=== PATIENT | male | born 1955 | race American Indian/Alaskan Native ===

== ENCOUNTER 2023-01-29 09:46 | Day surgery (SDC) | payer OTHER ==
[~2023-01-29] VITALS: Ht 177.8 cm; Wt 86.0 kg
[~2023-01-29 09:46] MED LIST: ACET325 PO; EUTHYROX125 MCG PO; ONDA4 PO; SENNA LAXATIVE8.6 MG PO
[2023-01-29] MEDS ORDERED: CYCL10 (10:05)
[2023-01-29] MEDS ORDERED: DEPO-TESTO200 MG/1 M (10:06)
[2023-01-29] MEDS ORDERED: VALA500 (10:07)
[2023-01-29] MEDS ORDERED: [UNRECOGNIZED DRUG - OTHER] (10:08)
[2023-01-29] MEDS ORDERED: ERGO400 (10:09)
[2023-01-29 12:36] VITALS: BP 121/80
== END 2023-01-29 12:44 | disposition home or self-care (01) ==
LOC: ORSCSDS 09:46
PROVIDERS: Surgery
PROC: 0DJD8ZZ Inspection of Lower Intestinal Tract, Via Natural or Artificial Opening Endoscopic (ICD-10-PCS; principal; 2023-01-29 11:00)
PROC: 0DB78ZX Excision of Stomach, Pylorus, Via Natural or Artificial Opening Endoscopic, Diagnostic (ICD-10-PCS; principal; 2023-01-29 11:00)
DX: R19.4 Change in bowel habit (principal); K29.70 Gastritis, unspecified, without bleeding; R10.84 Generalized abdominal pain; R11.0 Nausea; K59.00 Constipation, unspecified; Z79.899 Other long term (current) drug therapy
CPT/HCPCS: 88305; 88342; J2704; J7120

== ENCOUNTER 2024-04-04 13:46 | Emergency (ER) | payer OTHER ==
[~2024-04-04] VITALS: Ht 177.8 cm; Wt 86.2 kg
[~2024-04-04 13:46] MED LIST changes: +CYCL10; +DEPO-TESTO200 MG/1 M; +ERGO400; +VALA500; +[UNRECOGNIZED DRUG - OTHER]
[2024-04-04 13:55] VITALS: BP 160/112
[2024-04-04 14:21] LABS: BASOPHILS ABSOLUTE AUTO 0.02 K/mm3 (0.00-0.23); BASOPHILS PERCENT AUTO 1 % (0-2); EOSINOPHILS ABSOLUTE AUTO 0.06 K/mm3 (0.00-0.68); EOSINOPHILS PERCENT AUTO 2 % (0-6); Hematocrit 42.9 % (37.0-53.0); IMMATURE GRAN ABSOLUTE AUTO 0.01 K/mm3 (0.00-0.10); IMMATURE GRAN PERCENT AUTO 0 % (0-1); LYMPHOCYTES ABSOLUTE AUTO 1.28 K/mm3 (0.84-5.20); LYMPHOCYTES PERCENT AUTO 31 % (21-46); MONOCYTES ABSOLUTE AUTO 0.65 K/mm3 (0.16-1.47); MONOCYTES PERCENT AUTO 16 % (4-13); Mean Corpuscular HGB 32.8 pg (26.0-34.0); Mean Corpuscular Volume 94 fL (80-100); Mean Platelet Volume 10.9 fL (9.1-12.4); NEUTROPHILS PERCENT AUTO 51 % (41-73); Platelet Count 218 K/mm3 (150-400); RDW Standard Deviation 47.8 fL (35.1-46.3); Red Blood Cell Count 4.58 M/mm3 (4.30-5.90); White Blood Cell Count 4.12 K/mm3 (4.00-11.30)
[2024-04-04 14:48] LABS: Albumin, Blood 4.3 g/dL (3.4-5.0); Albumin/Globulin Ratio 1.1 (0.8-1.8); Bilirubin, Total 0.8 mg/dL (0.1-1.0); Bun/Creatinine Ratio 13.2 (12.0-20.0); Calcium, Blood 9.6 mg/dL (8.5-10.1); Creatinine, Blood 1.06 mg/dL (0.60-1.20); Globulin, Blood 3.9 g/dL (2.2-4.0); Potassium, Blood 4.4 mmol/L (3.5-5.5); Total Protein, Blood 8.2 g/dL (6.4-8.2)
== END 2024-04-04 16:54 | disposition home or self-care (01) ==
LOC: ER 13:46
PROVIDERS: Emergency Medicine
DX: K59.00 Constipation, unspecified (principal); K43.9 Ventral hernia without obstruction or gangrene; K57.30 Diverticulosis of large intestine without perforation or abscess without bleeding; E03.9 Hypothyroidism, unspecified; Z88.5 Allergy status to narcotic agent; Z88.0 Allergy status to penicillin; Z79.890 Hormone replacement therapy; Z79.899 Other long term (current) drug therapy; Z90.49 Acquired absence of other specified parts of digestive tract
CPT/HCPCS: 74177; 80053; 85025; 99285-25; Q9967

== ENCOUNTER 2024-05-06 09:10 | Inpatient (IN) | payer OTHER ==
[~2024-05-06] VITALS: Ht 175.3 cm; Wt 84.3 kg
[2024-05-06] VITALS (35 sets, daily range): BP systolic 111–189; BP diastolic 74–114
[~2024-05-06 09:10] MED LIST changes: +DOXY100 PO; +Flonase 0.05% N16 GM; +HYDROCODONE-AC1 EA19 PO; +LORA10ER PO; +MELO7.5 PO; +Metrocream45 GM TOP; +OMEP20ER PO; +SILD25T PO; +THERA-D2000 UNIT; +TUMERIC; +XYZAL5 MG PO
[2024-05-06] MEDS ORDERED: CeFAZolin Sodium 2,000 MG in NS 100 ML IV SCH (09:25)
[2024-05-06] MEDS ORDERED: Acetaminophen 500 MG Tab PO SCH (09:25)
[2024-05-06] MEDS ORDERED: Lactated Ringer's 1,000 ML IV SCH (09:25)
[2024-05-06] MEDS ORDERED: Bupivacaine 0.5% HCl 5 MG/ML 30MLVIAL ONE (09:31)
--- NOTE | 2024-05-06 09:57 | NUR ---
Ambulatory in Day Surgery. History, Chart, Medications and Allergies reviewed before start of procedure. Lungs clear T/O to Auscultation. Patient confirms NPO status and agrees with scheduled surgery. Pre-Op teaching done. Pt verbalizes understanding. PT BELONGINGS PLACED UNDERNEATH GURNEY FOR SAFEKEEPING.
[2024-05-06] MEDS ORDERED: Midazolam HCl 1MG / ML 2ML Vial ONE ×2 (10:05→14:48)
[2024-05-06] MEDS ORDERED: FentaNYL Citrate 50 MCG/ML 2 ML Injection ONE ×6 (10:06→14:49)
[2024-05-06] MEDS ORDERED: propofoL 20 ML IV ONE (10:10)
[2024-05-06] MEDS ORDERED: SuccINYLCHOLINE Chloride 100 MG/5 ML 5MLSYR ONE (10:11)
[2024-05-06] MEDS ORDERED: Dexamethasone Sod Phos 10 MG/ML 1ML VIAL ONE (10:23)
[2024-05-06] MEDS ORDERED: Rocuronium Bromide 10 MG/ML 5ML Injection IV ONE ×2 (10:23→10:24)
[2024-05-06] MEDS ORDERED: Ondansetron HCl 2 MG / ML 2ML Vial ONE (10:23)
[2024-05-06] MEDS ORDERED: CeFAZolin Sodium 1000 mg Vial ONE (12:34)
[2024-05-06] MEDS ORDERED: Ketorolac Tromethamine 30mg Vial ONE (13:19)
[2024-05-06] MEDS ORDERED: Sugammadex Sodium 200 MG/2ML SDV (100 MG/ML) ONE (13:19)
[2024-05-06] MEDS ORDERED: HYDROmorphone HCl/Pf 1MG SYR ONE ×4 (14:03→15:29)
[2024-05-06] MEDS ORDERED: HYDROcodone 7.5-APAP 325 TAB PO PRN (14:05)
[2024-05-06] MEDS ORDERED: FLU VACC TS2024-25(6MOS UP)/PF 45 MCG/0.5 ML SYRINGE IM PRN (14:05)
[2024-05-06] MEDS ORDERED: Ondansetron HCl 2 MG / ML 2ML Vial IV PRN (14:05)
[2024-05-06] MEDS ORDERED: FentaNYL Citrate 50 MCG/ML 2 ML Injection IV PRN (14:10)
[2024-05-06] MEDS ORDERED: Ketorolac Tromethamine 15mg Vial IV PRN (14:15)
[2024-05-06] MEDS ORDERED: Labetalol HCL 5 MG/ML 4ML Injection (Single Dose) ONE (14:34)
[2024-05-06] MEDS ORDERED: Lactated Ringer's 1,000 ML IV ONE (14:50)
--- NOTE | 2024-05-06 17:58 | NUR ---
PATIENT IS ALERT AND ORIENTED AND COOPERAIVE WITH CARE. PAIN MANAGEMENT IS OUR GOAL, MANAGED PER EMAR. THE PATIENT'S FAMILY WAS AT THE BEDSIDE FOLLOWING SURGERY. POD 0 HERNIA REPAIR. THE PATIENT STATES HIS PAIN IS CHRONIC AND WORSE TODAY FOLLOWING SURGERY. HE IS TRYING TO SLEEP NOW THAT HIS FAMILY HAS GONE HOME. WILL CONTINUE TO MONITOR.
[2024-05-06] MEDS ORDERED: Cyclobenzaprine HCl 10 MG Tab PO PRN (18:30)
[2024-05-06] MEDS ORDERED: LORazepam 1 MG Tab PO ONE (18:30)
[2024-05-06] MEDS ORDERED: Docusate Sodium 100 MG Cap PO SCH (21:00)
[2024-05-07 04:09] VITALS: BP 143/93
--- NOTE | 2024-05-07 04:23 | NUR ---
SHIFT SUMMARY POD 1 LAP HERNIA REPAIR WITH MESH PT RESTLESS T/O NIGHT. PAIN HAS BEEN ABLE TO BE MANAGED PER THE EMAR. TOLERAING SMALL AMOUNTS OF CLEAR LIQUIDS. DENIES N/V. PT WAS ABLE TO VOID. PT REPORTS BURPING BUT NOT PASSING ANY GAS.PT HAS NOT BEEN OOB YET. X4 LAP SITES CLOSED WITH WG, ALL C/D/I. VSS. NO OTHER CONCERNS AT THIS TIME, CALL LIGHT WITHIN REACH
[2024-05-07 07:09] VITALS: BP 144/87
[2024-05-07] MEDS ORDERED: Norco 7.5-3251 EACH PO (07:57)
--- NOTE | 2024-05-07 08:51 | NUR ---
PT GOT UP TO CHAIR WITH SBA. PT SAT THERE TO EAT BREAKFAST, BUT PAIN INCREASED TO 6/10. PT ASSISTED BACK TO BED AND PAIN INCREASED SIGNIFICANTLY. MEDICATED WITH FENTANYL 50MCG IVP. SIDE RAILS UP AND CALL LIGHT IN REACH.
[2024-05-07] MEDS ORDERED: Enoxaparin 40 MG/0.4 ML SYR SC SCH (09:00)
--- NOTE | 2024-05-07 13:38 | NUR ---
DISCHARGE SUMMARY PT CLEARED TO D/C HOME. NILAM PO INTAKE WELL. ADEQUATE PAIN CONTROLLED WITH PO MEDICATION. D/C INSTRUCTIONS GONE OVER WITH PT AND HE VERBALIZES UNDERSTANDING. LAP SITES X4 WNL. PT TO F/U WITH SURGEON IN 2 WEEKS AND CALL WITH ANY QUESTIONS OR GO TO ED IF CONCERNED. PT ESCORTED TO LOBBY VIA WC. TO GIVE RIDE HOME.
== END 2024-05-07 13:38 | disposition home or self-care (01) | DRG 355 ==
LOC: MEDS 09:10 → PRE IP 10:45 → SURS 15:53
PROVIDERS: ADMIT Surgery
PROC: 8E0W4CZ Robotic Assisted Procedure of Trunk Region, Percutaneous Endoscopic Approach (ICD-10-PCS; 2024-05-06)
PROC: 0WUF4JZ Supplement Abdominal Wall with Synthetic Substitute, Percutaneous Endoscopic Approach (ICD-10-PCS; principal; 2024-05-06 10:45)
DX: K43.2 Incisional hernia without obstruction or gangrene (principal); K21.9 Gastro-esophageal reflux disease without esophagitis; M54.16 Radiculopathy, lumbar region; E89.0 Postprocedural hypothyroidism; F10.90 Alcohol use, unspecified, uncomplicated; F12.90 Cannabis use, unspecified, uncomplicated; K66.0 Peritoneal adhesions (postprocedural) (postinfection); Z98.1 Arthrodesis status; Z90.49 Acquired absence of other specified parts of digestive tract; Z98.42 Cataract extraction status, left eye; Z87.19 Personal history of other diseases of the digestive system; Z98.41 Cataract extraction status, right eye; Z98.890 Other specified postprocedural states; Z90.89 Acquired absence of other organs; Z79.899 Other long term (current) drug therapy; Z79.890 Hormone replacement therapy; Z91.040 Latex allergy status; Z88.0 Allergy status to penicillin; Z88.5 Allergy status to narcotic agent
CPT/HCPCS: 94762; A9270; C1781; J0330; J0690; J1100; J1171; J1650; J1885; J2250; J2405; J2704; J3010; J7120

== ENCOUNTER → 2024-08-26 | Outpatient (CLI) | payer OTHER ==
[~2024-08-26] MED LIST changes: +Norco 7.5-3251 EACH PO
[2024-08-26 15:25] LABS: BASOPHILS ABSOLUTE AUTO 0.02 K/mm3 (0.00-0.23); BASOPHILS PERCENT AUTO 1 % (0-2); EOSINOPHILS ABSOLUTE AUTO 0.08 K/mm3 (0.00-0.68); EOSINOPHILS PERCENT AUTO 2 % (0-6); Hematocrit 42.1 % (37.0-53.0); Hemoglobin 14.4 g/dL (13.5-17.5); IMMATURE GRAN ABSOLUTE AUTO 0.01 K/mm3 (0.00-0.10); IMMATURE GRAN PERCENT AUTO 0 % (0-1); LYMPHOCYTES ABSOLUTE AUTO 1.83 K/mm3 (0.84-5.20); LYMPHOCYTES PERCENT AUTO 47 % (21-46); MONOCYTES ABSOLUTE AUTO 0.93 K/mm3 (0.16-1.47); MONOCYTES PERCENT AUTO 24 % (4-13); Mean Corpuscular HGB 32.1 pg (26.0-34.0); Mean Corpuscular HGB Conc 34.2 g/dL (31.5-36.5); Mean Corpuscular Volume 94 fL (80-100); Mean Platelet Volume 10.9 fL (9.1-12.4); NEUTROPHILS ABSOLUTE AUTO 1.03 K/mm3 (1.96-9.15); NEUTROPHILS PERCENT AUTO 26 % (41-73); Platelet Count 181 K/mm3 (150-400); RDW Coefficient Variation 14.2 % (11.7-14.2); RDW Standard Deviation 48.5 fL (35.1-46.3); Red Blood Cell Count 4.48 M/mm3 (4.30-5.90)
[2024-08-26 15:33] LABS: Albumin, Blood 4.4 g/dL (3.4-5.0); Albumin/Globulin Ratio 1.3 (0.8-1.8); Bilirubin, Total 0.5 mg/dL (0.1-1.0); Bun/Creatinine Ratio 9.4 (12.0-20.0); Calcium, Blood 9.2 mg/dL (8.5-10.1); Creatinine, Blood 1.38 mg/dL (0.60-1.20); Globulin, Blood 3.5 g/dL (2.2-4.0); Potassium, Blood 4.2 mmol/L (3.5-5.5); Total Protein, Blood 7.9 g/dL (6.4-8.2)
== END ==
LOC: LAB SHORT 15:20 → LAB 15:20
PROVIDERS: Family Medicine
DX: R10.31 Right lower quadrant pain (principal)
CPT/HCPCS: 80053; 85025

== ENCOUNTER 2025-01-26 14:18 | Emergency (ER) | payer OTHER ==
[~2025-01-26] VITALS: Ht 177.8 cm; Wt 81.7 kg
[2025-01-26] MEDS ORDERED: Ondansetron HCl 2 MG / ML 2ML Vial IV ONE (16:25)
[2025-01-26] MEDS ORDERED: NS 1,000 ML IV SCH (16:25)
[2025-01-26] MEDS ORDERED: FentaNYL Citrate 50 MCG/ML 2 ML Injection IV ONE (16:25)
[2025-01-26] MEDS ORDERED: Ketorolac Tromethamine 15mg Vial IV ONE (16:30)
[2025-01-26] MEDS ORDERED: HYDROmorphone HCl/Pf 1MG SYR IV ONE ×2 (17:00→18:05)
[2025-01-26 17:24] LABS: BASOPHILS ABSOLUTE AUTO 0.01 K/mm3 (0.00-0.23); BASOPHILS PERCENT AUTO 0 % (0-2); EOSINOPHILS ABSOLUTE AUTO 0.01 K/mm3 (0.00-0.68); EOSINOPHILS PERCENT AUTO 0 % (0-6); Hematocrit 40.7 % (37.0-53.0); Hemoglobin 13.6 g/dL (13.5-17.5); IMMATURE GRAN ABSOLUTE AUTO 0.08 K/mm3 (0.00-0.10); IMMATURE GRAN PERCENT AUTO 2 % (0-1); LYMPHOCYTES ABSOLUTE AUTO 1.23 K/mm3 (0.84-5.20); LYMPHOCYTES PERCENT AUTO 23 % (21-46); MONOCYTES ABSOLUTE AUTO 0.79 K/mm3 (0.16-1.47); MONOCYTES PERCENT AUTO 15 % (4-13); Mean Corpuscular HGB Conc 33.4 g/dL (31.5-36.5); Mean Corpuscular Volume 96 fL (80-100); NEUTROPHILS ABSOLUTE AUTO 3.23 K/mm3 (1.96-9.15); NEUTROPHILS PERCENT AUTO 60 % (41-73); NRBC ABSOLUTE 0.00 K/mm3 (0.00-0.02); NRBC Auto 0.0 /100 WBC (0.0-0.2); Platelet Count 212 K/mm3 (150-400); RDW Coefficient Variation 14.8 % (11.7-14.2); RDW Standard Deviation 52.4 fL (35.1-46.3)
[2025-01-26 17:32] LABS: Alanine Aminotransfer (ALT/SGP 21.0 U/L (12-78); Albumin, Blood 4.3 g/dL (3.4-5.0); Albumin/Globulin Ratio 1.2 (0.8-1.8); Anion Gap 6.0 mmol/L (3-11); Aspartate Aminotrans (AST/SGOT 16.0 U/L (12-37); Bilirubin, Total 0.5 mg/dL (0.1-1.0); Blood Urea Nitrogen 10.0 mg/dL (8-24); CO2, Blood 27.0 mmol/L (21-32); Calcium, Blood 9.3 mg/dL (8.5-10.1); Chloride, Blood 108.0 mmol/L (98-108); Creatinine, Blood 1.28 mg/dL (0.60-1.20); Globulin, Blood 3.7 g/dL (2.2-4.0); Glucose, Blood 108.0 mg/dL (70-99); Potassium, Blood 3.7 mmol/L (3.5-5.5); Sodium, Blood 137.0 mmol/L (136-145); Total Protein, Blood 8.0 g/dL (6.4-8.2)
[2025-01-26 18:10] LABS: Source, Urine Clean Catch
[2025-01-26 18:31] LABS: Bilirubin, Urine Neg (Neg); Color, Urine Yellow (P-Yellow); Glucose Qualitative, Urine Neg (Neg); Ketones, Urine Neg (Neg); Leukocyte Esterase, Urine Neg (Neg); Protein, Urine 1+ (Neg); Specific Gravity, Urine 1.015 (1.003-1.022); Urobilinogen, Urine NORM (Normal)
[2025-01-26] MEDS ORDERED: Midazolam HCl 1MG / ML 2ML Vial IV ONE (18:45)
[2025-01-26 19:45] VITALS: BP 128/87
[2025-01-26] MEDS ORDERED: Lidocaine 2% Viscous Soln 15 ML UDC PO ONE (20:10)
[2025-01-26] MEDS ORDERED: OMEP20ER PO (21:05)
[2025-01-26] MEDS ORDERED: Percocet 5-3251 EACH PO (21:07)
[2025-01-26] MEDS ORDERED: RX Prepack 6 Tabs Oxycodone 5mg UD ONE (21:10)
== END 2025-01-26 21:26 | disposition home or self-care (01) ==
LOC: ER 14:18
PROVIDERS: Student in an Organized Health Care Education/Training Program
DX: R10.12 Left upper quadrant pain (principal); Z88.5 Allergy status to narcotic agent; Z88.0 Allergy status to penicillin; Z91.040 Latex allergy status; Z79.899 Other long term (current) drug therapy; Z79.2 Long term (current) use of antibiotics; Z90.49 Acquired absence of other specified parts of digestive tract
CPT/HCPCS: 36415; 74177; 80053; 83605; 83690; 85025; 87040; 96361; 96374-59; 96375; 96376; 99285-25; A9270; J1171; J1885; J2250; J2405; J3010; J7030; Q9967

== ENCOUNTER 2025-02-08 13:29 | Emergency (ER) | payer OTHER ==
[~2025-02-08] VITALS: Ht 175.3 cm; Wt 80.7 kg
[~2025-02-08 13:29] MED LIST changes: +Percocet 5-3251 EACH PO
[2025-02-08 13:34] VITALS: BP 175/100
[2025-02-08] MEDS ORDERED: Ondansetron HCl 2 MG / ML 2ML Vial IV ONE (13:40)
[2025-02-08] MEDS ORDERED: Ketorolac Tromethamine 15mg Vial IV ONE (13:40)
[2025-02-08 14:08] LABS: BASOPHILS ABSOLUTE AUTO 0.01 K/mm3 (0.00-0.23); BASOPHILS PERCENT AUTO 0 % (0-2); EOSINOPHILS ABSOLUTE AUTO 0.03 K/mm3 (0.00-0.68); EOSINOPHILS PERCENT AUTO 1 % (0-6); Hematocrit 40.8 % (37.0-53.0); Hemoglobin 14.1 g/dL (13.5-17.5); IMMATURE GRAN ABSOLUTE AUTO 0.01 K/mm3 (0.00-0.10); IMMATURE GRAN PERCENT AUTO 0 % (0-1); LYMPHOCYTES ABSOLUTE AUTO 0.97 K/mm3 (0.84-5.20); LYMPHOCYTES PERCENT AUTO 29 % (21-46); MONOCYTES ABSOLUTE AUTO 0.57 K/mm3 (0.16-1.47); MONOCYTES PERCENT AUTO 17 % (4-13); Mean Corpuscular HGB Conc 34.6 g/dL (31.5-36.5); Mean Corpuscular Volume 93 fL (80-100); NEUTROPHILS ABSOLUTE AUTO 1.78 K/mm3 (1.96-9.15); NEUTROPHILS PERCENT AUTO 53 % (41-73); NRBC ABSOLUTE 0.00 K/mm3 (0.00-0.02); NRBC Auto 0.0 /100 WBC (0.0-0.2); Platelet Count 158 K/mm3 (150-400); RDW Coefficient Variation 14.2 % (11.7-14.2); RDW Standard Deviation 47.9 fL (35.1-46.3)
[2025-02-08 14:32] LABS: C-REACTIVE PROTEIN, EXT RANGE <0.290 mg/dL (0.000-0.300)
[2025-02-08 14:42] LABS: Alanine Aminotransfer (ALT/SGP 21 U/L (12-78); Albumin, Blood 4.9 g/dL (3.4-5.0); Albumin/Globulin Ratio 1.4 (0.8-1.8); Anion Gap 12 mmol/L (3-11); Aspartate Aminotrans (AST/SGOT 19 U/L (12-37); Bilirubin, Total 1.0 mg/dL (0.1-1.0); Blood Urea Nitrogen 7 mg/dL (8-24); CO2, Blood 21 mmol/L (21-32); Calcium, Blood 9.6 mg/dL (8.5-10.1); Chloride, Blood 108 mmol/L (98-108); Creatinine, Blood 1.10 mg/dL (0.60-1.20); Globulin, Blood 3.6 g/dL (2.2-4.0); Glucose, Blood 112 mg/dL (70-99); Potassium, Blood 3.7 mmol/L (3.5-5.5); Sodium, Blood 137 mmol/L (136-145); Total Protein, Blood 8.5 g/dL (6.4-8.2)
== END 2025-02-08 14:45 | disposition home or self-care (01) ==
LOC: ER 13:29
PROVIDERS: Physician Assistant
DX: R10.9 Unspecified abdominal pain (principal); R06.82 Tachypnea, not elsewhere classified; Z53.29 Procedure and treatment not carried out because of patient's decision for other reasons
CPT/HCPCS: 80053; 83690; 85025; 86140; 99281; J1885; J2405

== ENCOUNTER → 2025-02-12 | Outpatient (CLI) | payer OTHER ==
[2025-02-13 21:34] LABS: Campylobacter Sp Not Detected (NOT DETECT); Salmonella Sp Not Detected (NOT DETECT); Vibrio Sp Not Detected (NOT DETECT)
[2025-02-13 21:35] LABS: E. Coli O157 Not Detected (NOT DETECT); Enteroaggregative E. coli-EAEC Not Detected (NOT DETECT); Enteropathogenic E. coli-EPEC Detected (NOT DETECT); Enterotoxigenic E. coli-ETEC Not Detected (NOT DETECT); Shiga Toxin-prod E. coli-STEC Not Detected (NOT DETECT); Shigella/Enteroin E. coli-EIEC Not Detected (NOT DETECT)
== END | disposition home or self-care (01) ==
LOC: LAB SHORT 16:30 → LAB 16:30
PROVIDERS: Nurse Practitioner
DX: D70.9 Neutropenia, unspecified (principal); R10.9 Unspecified abdominal pain; R39.198 Other difficulties with micturition
CPT/HCPCS: 87507

== ENCOUNTER 2025-02-13 10:45 | Emergency (ER) | payer OTHER ==
[~2025-02-13] VITALS: Ht 175.3 cm; Wt 80.7 kg
[2025-02-13 11:29] VITALS: BP 140/99
[2025-02-13 12:31] LABS: BASOPHILS ABSOLUTE AUTO 0.01 K/mm3 (0.00-0.23); BASOPHILS PERCENT AUTO 0 % (0-2); EOSINOPHILS ABSOLUTE AUTO 0.02 K/mm3 (0.00-0.68); EOSINOPHILS PERCENT AUTO 0 % (0-6); Hematocrit 39.7 % (37.0-53.0); Hemoglobin 13.9 g/dL (13.5-17.5); IMMATURE GRAN ABSOLUTE AUTO 0.02 K/mm3 (0.00-0.10); IMMATURE GRAN PERCENT AUTO 0 % (0-1); LYMPHOCYTES ABSOLUTE AUTO 1.09 K/mm3 (0.84-5.20); LYMPHOCYTES PERCENT AUTO 21 % (21-46); MONOCYTES ABSOLUTE AUTO 0.96 K/mm3 (0.16-1.47); MONOCYTES PERCENT AUTO 19 % (4-13); Mean Corpuscular HGB Conc 35.0 g/dL (31.5-36.5); Mean Corpuscular Volume 93 fL (80-100); NEUTROPHILS ABSOLUTE AUTO 3.09 K/mm3 (1.96-9.15); NEUTROPHILS PERCENT AUTO 60 % (41-73); NRBC ABSOLUTE 0.00 K/mm3 (0.00-0.02); NRBC Auto 0.0 /100 WBC (0.0-0.2); Platelet Count 160 K/mm3 (150-400); RDW Coefficient Variation 14.3 % (11.7-14.2); RDW Standard Deviation 48.5 fL (35.1-46.3)
[2025-02-13 13:07] LABS: Alanine Aminotransfer (ALT/SGP 21.0 U/L (12-78); Albumin, Blood 4.7 g/dL (3.4-5.0); Albumin/Globulin Ratio 1.3 (0.8-1.8); Anion Gap 6.0 mmol/L (3-11); Aspartate Aminotrans (AST/SGOT 21.0 U/L (12-37); Bilirubin, Total 0.8 mg/dL (0.1-1.0); Blood Urea Nitrogen 18.0 mg/dL (8-24); CO2, Blood 24.0 mmol/L (21-32); Calcium, Blood 9.7 mg/dL (8.5-10.1); Chloride, Blood 102.0 mmol/L (98-108); Creatinine, Blood 1.82 mg/dL (0.60-1.20); Globulin, Blood 3.5 g/dL (2.2-4.0); Glucose, Blood 103.0 mg/dL (70-99); Potassium, Blood 3.7 mmol/L (3.5-5.5); Sodium, Blood 128.0 mmol/L (136-145); Total Protein, Blood 8.2 g/dL (6.4-8.2)
== END 2025-02-13 14:50 | disposition left against medical advice (07) ==
LOC: ER 10:45
PROVIDERS: Student in an Organized Health Care Education/Training Program
DX: R07.89 Other chest pain (principal); Z53.29 Procedure and treatment not carried out because of patient's decision for other reasons; Z79.890 Hormone replacement therapy; Z79.1 Long term (current) use of non-steroidal anti-inflammatories (NSAID); Z79.899 Other long term (current) drug therapy
CPT/HCPCS: 80053; 84484; 85025

== ENCOUNTER → 2025-03-03 | Outpatient (CLI) | payer OTHER ==
[2025-03-03 18:50] LABS: Osmolality, Urine 880 mos/kg (15-1400)
[2025-03-03 19:10] LABS: Sodium, Urine, Random 15 mmol/L (20-110)
== END | disposition home or self-care (01) ==
LOC: LAB SHORT 10:55 → LAB 10:55
PROVIDERS: Family Medicine
DX: E87.1 Hypo-osmolality and hyponatremia (principal)
CPT/HCPCS: 83935; 84300